=== PATIENT | female | born 1990 | race Hispanic/Latino ===

== ENCOUNTER 2017-04-08 00:15 | Emergency (ER) | payer SELFPAY ==
[2017-04-08] MEDS ORDERED: ONDANSETRON ODT 4 MG TAB ONE (01:12)
[2017-04-08] MEDS ORDERED: DICYCLOMINE HCL 20 MG TAB ONE (01:12)
[2017-04-08 01:30] LABS: BASOPHILS % (AUTO) 0.3 % (0.0-5.0); EOSINOPHILS % (AUTO) 2.1 % (0.0-8.0); HEMATOCRIT 37.6 % (36-48); LYMPHOCYTES % (AUTO) 24.5 % (21.0-51.0); MEAN CORPUSCULAR HEMOGLOBIN 32.4 pg (27.0-33.0); MEAN CORPUSCULAR VOLUME 95.2 fL (79-99); NEUTROPHILS % (AUTO) 65.1 % (40.0-77.0); NUCLEATED RED BLOOD CELLS 0.1 % (0.0-0.19); PLATELET COUNT (AUTO) 249 K/uL (130-400); RED BLOOD CELL COUNT(AUTO) 3.95 MIL/uL (4.00-5.50); RED CELL DISTRIBUTION WIDTH 13.4 % (11.0-15.5); WHITE BLOOD COUNT (AUTO) 10.1 K/uL (4.8-10.8)
[2017-04-08 01:52] LABS: CREATININE 0.7 mg/dL (0.5-1.5); POTASSIUM 4.2 mmol/L (3.5-5.1)
[2017-04-08 01:57] LABS: APPEARANCE,URINE Clear (CLEAR); BILIRUBIN,URINE Negative (NEGATIVE); COLOR,URINE Yellow (YELLOW); GLUCOSE, URINE (UA) Negative (NEGATIVE); KETONES,URINE 15 mg/dL (NEGATIVE); LEUKOCYTE ESTERASE ,URINE Trace (NEGATIVE); NITRATE,URINE Negative (NEGATIVE); OCCULT BLOOD,URINE Negative (NEGATIVE); PH,URINE 6.5 (5.0-8.0); PROTEIN,URINE Negative (NEGATIVE)
[2017-04-08 02:00] LABS: ALBUMIN 3.9 g/dL (3.5-5.0); BILIRUBIN,TOTAL 1.1 mg/dL (0.2-1.0); TOTAL PROTEIN, SERUM 7.8 g/dL (6.0-8.3)
[2017-04-08 02:03] LABS: HCG,QUAL RESULT NEGATIVE (NEGATIVE)
[2017-04-08 02:04] LABS: BACTERIA,URINE Rare /HPF (None Seen)
[2017-04-08 02:05] LABS: MUCUS,URINE Moderate LPF (None Seen); SQUAMOUS EPITHELIAL CELL,UR Few /LPF (0-2)
== END 2017-04-08 02:42 | disposition home or self-care (01) ==
LOC: EDH 00:15
DX: K29.70 Gastritis, unspecified, without bleeding (principal)
CPT/HCPCS: 36415; 80053; 81001; 81025; 85025